=== PATIENT | male | born 1960 | race Caucasian/White ===

== ENCOUNTER 2017-03-29 16:54 | Emergency (ER) | payer BC ==
[2017-03-29 17:18] VITALS: BP 137/90
--- NOTE | 2017-03-29 19:16 | US ---
Right lower extremity deep venous ultrasound: Duplex and color flow imaging was obtained of the right common femoral, superficial femoral, popliteal, posterior tibial and peroneal veins. Left common femoral vein was also evaluated. Findings: Extensive right lower extremity deep venous thrombosis is identified from the proximal superficial femoral vein inferiorly to involve the posterior tibial and peroneal veins. Left common femoral vein is patent. Impression: 1. Extensive right lower extremity deep venous thrombosis. I am given a note that a preliminary report was given to the referring physician after the exam's completion Diagnostic code #5
[2017-03-29] MEDS ORDERED: Enoxaparin 100 MG/1 ML Syringe SUBCUT ONE (19:22)
--- NOTE | 2017-03-29 19:50 | EDM.PDOC ---
ED HPI GENERAL MEDICAL PROBLEM - General Chief Complaint: Lower Extremity Injury/Pain Stated Complaint: R ANKLE/CALF SWELLING POST TKR Time Seen by Provider: 03/29/17 17:16 Source of Information: Reports: Patient, RN notes reviewed - History of Present Illness INITIAL COMMENTS - FREE TEXT/NARRATIVE: 56-year-old male comes in with swelling of his right lower leg. He states this started with some very mild swelling about 5-7 days ago and then has worsened over the past 2-3 days. He has not been having pain. He had a right total knee replacement about 6 months ago. He was on anticoagulants for about 3 months or so, now having been off of anticoagulants for quite a longtime. No recent injury. No history of prior blood clots. No chest pain shortness of breath or other unusual symptomatology - Related Data Allergies Allergy/AdvReac Type Severity Reaction Status Date / Time Penicillins Allergy Fever Verified 03/29/17 17:17 Home Meds: Home Meds atorvaSTATin Calcium [Atorvastatin Calcium] 20 mg PO DAILY 09/02/16 [History] Rivaroxaban [Xarelto] 15 mg PO BID #40 tablet 03/29/17 [Rx] Past Medical History Cardiovascular History: Reports: High cholesterol - Infectious Disease History Infectious Disease History: Reports: Chicken pox, Measles - Past Surgical History HEENT Surgical History: Reports: Laser surgery, LASIK GI Surgical History: Reports: Colonoscopy Musculoskeletal Surgical History: Reports: Knee replacement, Other (see below) Other Musculoskeletal Surgeries/Procedures:: left achilles tendon repair, RTKR August 2016 Social & Family History - Family History HEENT: Reports: Cataract Cardiac: Reports: [place], [place], Stent Respiratory: Reports: Asthma OBGYN: Reports: Musculoskeletal: Reports: Arthritis Neurological: Reports: Alzheimers disease Endocrine/Metabolic: Reports: Diabetes, type II Oncologic: Reports: Prostate - Tobacco Use Smoking Status *Q: Never Smoker Second Hand Smoke Exposure: No - Caffeine Use Caffeine Use: Reports: Coffee - Alcohol Use Days Per Week of Alcohol Use: 1 Number of Drinks Per Day: 0 Total Drinks Per Week: 0 - Recreational Drug Use Recreational Drug Use: No Drug Use in Last 12 Months: No Review of Systems - Review of Systems Review Of Systems: See Below Constitutional: Denies: chills, fever Eyes: Reports: no symptoms Mouth/Throat: Reports: no symptoms Respiratory: Denies: Shortness of Breath, Wheezing, Pleuritic Chest Pain, Cough Cardiovascular: Denies: chest pain GI/Abdominal: Denies: Abdominal pain, Nausea, Vomiting Musculoskeletal: Reports: leg pain (No pain, some mild discomfort just due to the generalized swelling), other (Has had worsening generalized swelling of the right lower extremity from the knee down to the ankle). Denies: joint pain, joint swelling Skin: Reports: erythema (Mild right lower leg) Neurological: Denies: Numbness, Tingling, Difficulty Walking, Weakness Trauma Exam - Physical Exam Exam: See Below General Appearance: Reports: alert Head: Reports: atraumatic Eyes: bilateral eye: PERRL Throat/Mouth: Reports: Normal inspection Neck: Reports: full range of motion, other Respiratory Exam: Reports: no respiratory distress (No JVD), lungs clear, normal breath sounds Cardiovascular: Reports: regular rate, rhythm Extremities: Pedal Edema (Mild to moderate right lower extremity, diffuse swelling from the knee to the ankle), Other (There is no bony tenderness of the knee, no knee swelling warmth erythema or effusion, or is mild erythema of the right lower leg, calf is nontender) Neurologic: Reports: no motor/sensory deficits Skin: Reports: Warm/dry Course - Vital Signs Last Recorded V/S: Last Vital Signs Temp 97.3 F 03/29/17 17:16 Pulse 84 03/29/17 17:16 Resp 17 03/29/17 17:16 BP 137/90 03/29/17 17:16 Pulse Ox 100 03/29/17 17:16 - Orders/Labs/Meds Orders: Active Orders 24 hr Category Date Time Status CBC W/O DIFF,HEMOGRAM [HEME] MOTH@0700 Lab 03/30/17 07:00 Ordered CBC W/O DIFF,HEMOGRAM [HEME] MOTH@0700 Lab 04/03/17 07:00 Ordered CBC W/O DIFF,HEMOGRAM [HEME] MOTH@0700 Lab 04/06/17 07:00 Ordered CBC W/O DIFF,HEMOGRAM [HEME] MOTH@0700 Lab 04/10/17 07:00 Ordered CBC W/O DIFF,HEMOGRAM [HEME] MOTH@0700 Lab 04/13/17 07:00 Ordered CBC W/O DIFF,HEMOGRAM [HEME] MOTH@0700 Lab 04/17/17 07:00 Ordered Labs: Laboratory Tests 03/29/17 03/29/17 Range/Units 17:51 17:51 WBC 7.00 (4.23-9.07) K/mm3 RBC 4.43 L (4.63-6.08) M/mm3 Hgb 13.9 (13.7-17.5) gm/L Hct 41.9 (40.1-51.0) % MCV 94.6 H (79.0-92.2) fl MCH 31.4 (25.7-32.2) pg MCHC 33.2 (32.2-35.5) g/dl RDW Std Deviation 44.6 H (35.1-43.9) fL Plt Count 269 (163-337) K/mm3 MPV 8.9 L (9.4-12.3) fl Neut % (Auto) 55.3 (34.0-67.9) % Lymph % (Auto) 29.7 (21.8-53.1) % [place] % (Auto) 9.7 (5.3-12.2) % Eos % (Auto) 4.3 (0.8-7.0) Baso % (Auto) 0.7 (0.1-1.2) % Neut # (Auto) 3.87 (1.78-5.38) K/mm3 Lymph # (Auto) 2.08 (1.32-3.57) K/mm3 [place] # (Auto) 0.68 (0.30-0.82) K/mm3 Eos # (Auto) 0.30 (0.04-0.54) K/mm3 Baso # (Auto) 0.05 (0.01-0.08) K/mm3 Sodium 139 (136-145) mEq/L Potassium 3.8 (3.5-5.1) mEq/L Chloride 105 (98-107) mEq/L Carbon Dioxide 25 (21-32) mEq/L Anion Gap 12.8 (5-15) BUN 16 (7-18) mg/dL Creatinine 1.2 (0.7-1.3) mg/dL Est Cr Clr Drug Dosing 78.97 mL/min Estimated GFR (MDRD) > 60 (>60) mL/min BUN/Creatinine Ratio 13.3 L (14-18) Glucose 97 (74-106) mg/dL Calcium 8.9 (8.5-10.1) mg/dL Total Bilirubin 0.4 (0.2-1.0) mg/dL AST 19 (15-37) U/L ALT 40 (16-63) U/L Alkaline Phosphatase 133 H (46-116) U/L Total Protein 7.5 (6.4-8.2) g/dl Albumin 3.8 (3.4-5.0) g/dl Globulin 3.7 gm/dL Albumin/Globulin Ratio 1.0 (1-2) Meds: Medications Discontinued Medications Generic Name Dose Route Start Last Admin Trade Name Ginoq PRN Reason Stop Dose Admin Enoxaparin Sodium 100 mg 03/29/17 19:22 03/29/17 19:35 Lovenox SUBCUT 03/29/17 19:23 100 mg ONETIME ONE Administration - Re-Assessments/Exams Free Text/Narrative Re-Assessment/Exam: 03/29/17 18;00. Ultrasound of right lower extremity does show extensive right lower extremity deep venous thrombosis from the proximal superficial femoral vein inferiorly to involve the posterior tibial and peroneal veins. Left common femoral vein is patent, see Radiology report for details. Labs were normal. He continues to have no chest pain shortness of breath or any symptoms suggestive for PE. Have given Lovenox 100 mg subcutaneous. He would prefer to be on xarelto going forward. Therefore prescription for xarelto has been provided to start 15 mg twice daily in the morning. Discharge instructions as documented. Departure - Departure Time of Disposition: 19:46 Disposition: Home, Self-Care 01 Condition: fair Clinical Impression: DVT (deep venous thrombosis) Qualifiers: DVT location: lower extremity Affected thrombotic vein of extremity: other lower extremity vein Laterality: right Chronicity: acute Qualified Code(s): I82.491 - Acute embolism and thrombosis of other specified deep vein of right lower extremity - Discharge Information Prescriptions: Rivaroxaban [Xarelto] 15 mg PO BID #40 tablet Instructions: Deep Vein Thrombosis Referrals: Bc Bahena MD [Primary Care Provider] - Forms: ED Department Discharge Additional Instructions: You have been Given given a Lovenox injection this evening while here in the ED. Began xarelto tomorrow morning and take 15 mg twice daily for the next 3 weeks, than 20 mg daily. Keep leg elevated as much as possible. See Dr. Ortega next Monday or Monday at the clinic in followup. Call tomorrow morning for appointment. Return to ED immediately if you do experience any chest pain, difficulty breathing, unexplained weakness dizziness or other unexpected symptoms. - My Orders Last 24 Hours: My Active Orders 03/30/17 07:00 CBC W/O DIFF,HEMOGRAM [HEME] MOTH@0700 04/03/17 07:00 CBC W/O DIFF,HEMOGRAM [HEME] MOTH@0704/06/17 07:00 CBC W/O DIFF,HEMOGRAM [HEME] MOTH@69904/10/17 07:00 CBC W/O DIFF,HEMOGRAM [HEME] MOTH@69904/13/17 07:00 CBC W/O DIFF,HEMOGRAM [HEME] MOTH@0704/17/17 07:00 CBC W/O DIFF,HEMOGRAM [HEME] MOTH@0700 - Assessment/Plan Last 24 Hours: My Active Orders 03/30/17 07:00 CBC W/O DIFF,HEMOGRAM [HEME] MOTH@0704/03/17 07:00 CBC W/O DIFF,HEMOGRAM [HEME] MOTH@69904/06/17 07:00 CBC W/O DIFF,HEMOGRAM [HEME] MOTH@0704/10/17 07:00 CBC W/O DIFF,HEMOGRAM [HEME] MOTH@69904/13/17 07:00 CBC W/O DIFF,HEMOGRAM [HEME] MOTH@0700 04/17/17 07:00 CBC W/O DIFF,HEMOGRAM [HEME] MOTH@0700
== END 2017-03-29 20:05 | disposition home or self-care (01) ==
LOC: JD.ED 16:54
DX: I82.491 Acute embolism and thrombosis of other specified deep vein of right lower extremity (principal); E86.0 Dehydration; Z79.899 Other long term (current) drug therapy; Z88.0 Allergy status to penicillin; Z98.890 Other specified postprocedural states; Z96.651 Presence of right artificial knee joint
CPT/HCPCS: 36415; 80053; 85025; 93971; 96372; 99284; J1650

== ENCOUNTER 2017-09-25 08:20 | Emergency (ER) | payer BC ==
[2017-09-25 08:38] VITALS: BP 179/99
--- NOTE | 2017-09-25 09:51 | EDM.PDOC ---
ED HPI GENERAL MEDICAL PROBLEM - General Chief Complaint: Upper Extremity Injury/Pain Stated Complaint: LT SHOULDER PAIN Time Seen by Provider: 09/25/17 08:39 Source of Information: Reports: Patient, RN Notes Reviewed - History of Present Illness INITIAL COMMENTS - FREE TEXT/NARRATIVE: 57-year-old male has had some pain left anterior shoulder that started yesterday. He had done some shoveling the 2 days prior but not aware of any other particular injury. There's been no fall. He went to the walk-in clinic and they referred him here with cardiac concerns. The pain does not travel across his chest. The pain is worse with certain types of twisting of the upper body and also certain types of motion of the left arm. Left Shoulder Pain Score (Numeric/FACES): 1 - Related Data Allergies Allergy/AdvReac Type Severity Reaction Status Date / Time Penicillins Allergy Fever Verified 09/25/17 08:34 Home Meds: Home Meds atorvaSTATin Calcium [Atorvastatin Calcium] 20 mg PO DAILY 09/02/16 [History] Past Medical History Cardiovascular History: Reports: High Cholesterol - Infectious Disease History Infectious Disease History: Reports: Chicken Pox, Measles - Past Surgical History HEENT Surgical History: Reports: Laser Surgery, LASIK GI Surgical History: Reports: Colonoscopy Musculoskeletal Surgical History: Reports: Knee Replacement, Other (See Below) Dermatological Surgical History: Reports: None Social & Family History - Family History HEENT: Reports: Cataract Cardiac: Reports: [place], [place], Stent Respiratory: Reports: Asthma OBGYN: Reports: Musculoskeletal: Reports: Arthritis Neurological: Reports: Alzheimers Disease Endocrine/Metabolic: Reports: Diabetes, type II Oncologic: Reports: Prostate - Tobacco Use Smoking Status *Q: Unknown Ever Smoked Second Hand Smoke Exposure: No - Caffeine Use Caffeine Use: Reports: Coffee - Alcohol Use Days Per Week of Alcohol Use: 1 Number of Drinks Per Day: 0 Total Drinks Per Week: 0 - Recreational Drug Use Recreational Drug Use: No Drug Use in Last 12 Months: No Review of Systems - Review of Systems Review Of Systems: See Below Constitutional: Reports: No Symptoms Mouth/Throat: Reports: No Symptoms Respiratory: Denies: Shortness of Breath, Pleuritic Chest Pain, Cough Cardiovascular: Reports: Chest Pain GI/Abdominal: Denies: Abdominal Pain (Left anterior shoulder), Nausea, Vomiting Musculoskeletal: Reports: Shoulder Pain (Left anterior shoulder). Denies: Arm Pain, Leg Pain Skin: Reports: No Symptoms Neurological: Reports: No Symptoms ED EXAM, GENERAL - Physical Exam Exam: See Below General Appearance: Alert, No Apparent Distress Eye Exam: Bilateral Eye: PERRL Throat/Mouth: Normal Inspection, Normal Oropharynx Head: Atraumatic Neck: Supple, Full Range of Motion Respiratory/Chest: No Respiratory Distress, Lungs Clear, Other (There is tenderness of the left anterior chest wall anterior and just below the left shoulder). No: Rhonchi (, chest otherwise nontender) Cardiovascular: Regular Rate, Rhythm GI/Abdominal: Soft, Non-Tender. No: Guarding Back Exam: No: CVA Tenderness (L), CVA Tenderness (R) Extremities: No: Pedal Edema, Leg Pain Neurological: Alert, Oriented, No Motor/Sensory Deficits Skin Exam: Warm, Dry, Normal Color EKG INTERPRETATION EKG Date: 09/25/17 Rhythm: NSR Snyder: Normal P-Wave: Present QRS: Normal ST-T: Other (T-wave inversion in lead 3) QT: Normal Course - Vital Signs Last Recorded V/S: Last Vital Signs Temp 97.7 F 09/25/17 08:35 Pulse 95 09/25/17 08:35 Resp 16 09/25/17 08:35 BP 179/99 H 09/25/17 08:35 Pulse Ox 99 09/25/17 08:35 - Orders/Labs/Meds Orders: Active Orders 24 hr Category Date Time Status EKG Documentation Completion [RC] ASDIRECTED Care 09/25/17 08:38 Active EKG 12 Lead [EK] Stat Ther 09/25/17 08:38 Ordered Labs: Laboratory Tests 09/25/17 Range/Units 08:54 Troponin I < 0.017 (0.00-0.056) ng/mL - Re-Assessments/Exams Free Text/Narrative Re-Assessment/Exam: 09/25/17 17:32. EKG did not show acute changes, troponins did come back normal. He does have chest wall and left lower anterior shoulder tenderness exacerbated by certain types of motion. Discharge instructions as documented Departure - Departure Time of Disposition: 09:57 Disposition: Home, Self-Care 01 Clinical Impression: Acute chest wall pain - Discharge Information Instructions: Chest Wall Pain Referrals: Bc Bahena MD [Primary Care Provider] - Forms: ED Department Discharge Additional Instructions: Aleve 2 tablets twice daily, you may take Tylenol 2-3 times daily for additional pain relief as needed, alternate ice and heat, avoid heavy lifting, The pain should gradually get better over the next 2-4 days, follow-up clinic if not much better by later this week, return to ED if symptoms worsening in any way - My Orders Last 24 Hours: My Active Orders 09/25/17 08:38 EKG Documentation Completion [RC] ASDIRECTED EKG 12 Lead [EK] Stat - Assessment/Plan Last 24 Hours: My Active Orders 09/25/17 08:38 EKG Documentation Completion [RC] ASDIRECTED EKG 12 Lead [EK] Stat
== END 2017-09-25 10:08 | disposition home or self-care (01) ==
LOC: JD.ED 08:20
DX: R07.89 Other chest pain (principal); E78.00 Pure hypercholesterolemia, unspecified; Z88.0 Allergy status to penicillin
CPT/HCPCS: 36415; 84484; 93005; 93010; 99284; 99284-25

== ENCOUNTER 2019-09-21 04:55 | Emergency (ER) | payer BC ==
--- NOTE | 2019-09-21 05:41 | EDM.PDOC ---
ED HPI GENERAL MEDICAL PROBLEM - General Chief Complaint: Lower Extremity Injury/Pain Stated Complaint: RIGHT LEG SWOLLEN/PAINFUL Time Seen by Provider: 09/21/19 05:30 Source of Information: Reports: Patient History Limitations: Reports: No Limitations - History of Present Illness INITIAL COMMENTS - FREE TEXT/NARRATIVE: 59-year-old male presents to the ED with painful swollen right lower extremity. Patient states she's been in [place] most of the week. He flew down to [place] was fairly active not sitting around a good deal did some traveling by vehicle. He flew home yesterday. Patient in his right lower extremity becoming somewhat painful over the last couple of days. He woke this morning however the leg was much more painful when he got up to use the bathroom. He turned on the lights he appreciated the right medial aspect of his lower extremity was also reddened and more tender than one would expect. He has had previous DVT in the right lower extremity in March 2017. 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 He was on blood thinners for 3 months after this. He has no pleuritic chest pain. His O2 sats are 94%. He presents therefore to rule out DVT. Onset: Gradual Onset Date: 09/19/19 Duration: Day(s):, Getting Worse Location: Reports: Lower Extremity, Right (Started to appreciate some discomfort in his right lower extremity below the knee mid calf 2 days ago. It has become more swollen and painful over the last 12-24 hours. When he woke this morning the right side of his medial leg is reddened and pain with walking. ) Quality: Reports: Ache, Throbbing, Other (Slight erythema medial aspect of right lower extremity.) Severity: Moderate Improves with: Reports: None Worsens with: Reports: Movement Context: Reports: Other (Recent travel history biplane and car.). Denies: Activity (Walking makes it worse. Touching it hurts as well.), Exercise, Lifting , Sick Contact, Trauma Associated Symptoms: Reports: No Other Symptoms. Denies: Diaphoresis, Fever/ Chills, Headaches, Loss of Appetite, Malaise, Rash, Seizure, Shortness of Breath , Syncope, Weakness Treatments PULP PRESS TENDER: Reports: Other (see below) (None.) Right Lower Leg Pain Score (Numeric/FACES): 1 - Related Data Allergies Allergy/AdvReac Type Severity Reaction Status Date / Time Penicillins Allergy Fever Verified 09/21/19 05:02 Home Meds: Home Meds atorvaSTATin Calcium [Atorvastatin Calcium] 20 mg PO DAILY 09/02/16 [History] Rivaroxaban [Xarelto] 15 mg PO BID #42 tablet 09/21/19 [Rx] Rivaroxaban [Xarelto] 20 mg PO DAILY #30 tablet 09/21/19 [Rx] Past Medical History Cardiovascular History: Reports: Blood Clots/VTE/DVT, High Cholesterol, Hypertension Hematologic History: Reports: Other (See Below) ( Previous DVT right lower extremity March 2017) - Infectious Disease History Infectious Disease History: Reports: Chicken Pox, Measles - Past Surgical History HEENT Surgical History: Reports: Laser Surgery, LASIK GI Surgical History: Reports: Colonoscopy Musculoskeletal Surgical History: Reports: Knee Replacement Dermatological Surgical History: Reports: None Social & Family History - Family History HEENT: Reports: Cataract Cardiac: Reports: [place], [place], Stent Respiratory: Reports: Asthma OBGYN: Reports: Musculoskeletal: Reports: Arthritis Neurological: Reports: Alzheimers Disease Endocrine/Metabolic: Reports: Diabetes, type II Oncologic: Reports: Prostate - Tobacco Use Smoking Status *Q: Never Smoker - Caffeine Use Caffeine Use: Reports: Coffee - Recreational Drug Use Recreational Drug Use: No - Living Situation & Occupation Living situation: Reports: Occupation: Employed Review of Systems - Review of Systems Review Of Systems: See Below Constitutional: Reports: No Symptoms Eyes: Reports: No Symptoms Ears: Reports: No Symptoms Nose: Reports: No Symptoms, Previous Injury Mouth/Throat: Reports: No Symptoms Respiratory: Reports: Cough, Other (Mild cough.). Denies: Shortness of Breath, Wheezing, Pleuritic Chest Pain, Sputum Cardiovascular: Reports: No Symptoms GI/Abdominal: Reports: No Symptoms Genitourinary: Reports: No Symptoms Musculoskeletal: Reports: Leg Pain Skin: Reports: Erythema (Development of mild erythema and tender to touch along the medial aspect of his right lower extremity over the last 20 hours.) Neurological: Reports: No Symptoms Psychiatric: Reports: No Symptoms ED EXAM, GENERAL - Physical Exam Exam: See Below Exam Limited By: No Limitations General Appearance: Alert, WD/WN, Anxious, Mild Distress, Other (Temperatures 36.3. Pulse is 92 and sinus respiratory disease 18 sats 94% on room air BP 160/ 96.) Eye Exam: Bilateral Eye: Normal Inspection, PERRL Throat/Mouth: Normal Inspection, Normal Lips, Normal Oropharynx Neck: Normal Inspection, Supple, Non-Tender, Full Range of Motion. No: Lymphadenopathy (L) Respiratory/Chest: No Respiratory Distress, Lungs Clear, Normal Breath Sounds, No Accessory Muscle Use Cardiovascular: Normal Peripheral Pulses, Regular Rate, Rhythm, No Edema, No Gallop, No Murmur, No Rub Peripheral Pulses: 2+: Posterior Tibial (L), Posterior Tibial (R), Dorsalis Pedis (L), Dorsalis Pedis (R) GI/Abdominal: Normal Bowel Sounds, Soft, Non-Tender, No Organomegaly, No Mass, Pelvis Stable Extremities: Other (On examination there is no doubt that the right lower extremity is larger than the left lower extremity. There is erythema from medial malleolus to the knee medially of the right leg. The calf musculature is more taut on the right side. Pulses are equal on both sides. No significant swelling in the popliteal fossa on either side. Concerns are certainly noted for possible DVT reoccurrence on the right side.) Neurological: Alert, Oriented, CN II-XII Intact, Normal Cognition Psychiatric: Normal Affect, Normal Mood Skin Exam: Warm, Dry, Intact, Normal Color, No Rash Course - Vital Signs Last Recorded V/S: Last Vital Signs Temp 36.3 C 09/21/19 05:03 Pulse 92 09/21/19 05:03 Resp 18 09/21/19 05:03 BP 160/96 H 09/21/19 05:03 Pulse Ox 94 L 09/21/19 05:03 - Orders/Labs/Meds Orders: Active Orders 24 hr Category Date Time Status VL Duplex Lwr Ext Veins Ltd Rt [US] Stat Exams 09/21/19 05:39 Ordered ANTICARDIOLIPIN AB, IGG/M, QN [REF] Stat Lab 09/21/19 07:18 Ordered ANTITHROMBIN ACTIVITY [REF] Stat Lab 09/21/19 07:17 Ordered FACTOR V LEIDEN MUTATION [REF] Stat Lab 09/21/19 07:16 Ordered PROTEIN C-FUNCTIONAL [REF] Stat Lab 09/21/19 07:17 Ordered PROTEIN S-FUNCTIONAL [REF] Stat Lab 09/21/19 07:17 Ordered Labs: Laboratory Tests 09/21/19 09/21/19 09/21/19 Range/Units 06:11 06:11 06:11 WBC 6.18 (4.23-9.07) K/mm3 RBC 4.76 (4.63-6.08) M/mm3 Hgb 15.0 (13.7-17.5) gm/dl Hct 44.9 (40.1-51.0) % MCV 94.3 H (79.0-92.2) fl MCH 31.5 (25.7-32.2) pg MCHC 33.4 (32.2-35.5) g/dl RDW Std Deviation 44.8 H (35.1-43.9) fL Plt Count 248 (163-337) K/mm3 MPV 9.0 L (9.4-12.3) fl Neut % (Auto) 51.6 (34.0-67.9) % Lymph % (Auto) 29.4 (21.8-53.1) % [place] % (Auto) 11.7 (5.3-12.2) % Eos % (Auto) 6.3 (0.8-7.0) Baso % (Auto) 0.8 (0.1-1.2) % Neut # (Auto) 3.19 (1.78-5.38) K/mm3 Lymph # (Auto) 1.82 (1.32-3.57) K/mm3 [place] # (Auto) 0.72 (0.30-0.82) K/mm3 Eos # (Auto) 0.39 (0.04-0.54) K/mm3 Baso # (Auto) 0.05 (0.01-0.08) K/mm3 PT 10.5 (9.7-12.0) SECONDS INR 0.96 APTT 25 (22-31) SECONDS D-Dimer, Quantitative 1.43 H (0.19-0.50) mg/L Sodium 139 (136-145) mEq/L Potassium 4.1 (3.5-5.1) mEq/L Chloride 105 (98-107) mEq/L Carbon Dioxide 25 (21-32) mEq/L Anion Gap 13.1 (5-15) BUN 16 (7-18) mg/dL Creatinine 1.2 (0.7-1.3) mg/dL Est Cr Clr Drug Dosing 76.11 mL/min Estimated GFR (MDRD) > 60 (>60) mL/min BUN/Creatinine Ratio 13.3 L (14-18) Glucose 117 H (74-106) mg/dL Calcium 9.1 (8.5-10.1) mg/dL Total Bilirubin 0.7 (0.2-1.0) mg/dL AST 21 (15-37) U/L ALT 53 (16-63) U/L Alkaline Phosphatase 97 (46-116) U/L Total Protein 7.2 (6.4-8.2) g/dl Albumin 3.6 (3.4-5.0) g/dl Globulin 3.6 gm/dL Albumin/Globulin Ratio 1.0 (1-2) - Radiology Interpretation Free Text/Narrative:: 59-year-old male presents to the ED for evaluation of painful swollen right lower extremity. He's had a previous DVT in the right lower extremity for no apparent reason in March 2017. He had a total knee replacement in August 2016. He has recently traveled to [place] by airplane and was traveling by car somewhat. He appreciated some tenderness in his right lower extremity feeling that he may have tweaked his calf muscle by awkward movements about a week ago. Is 48 hours she is felt that the right lower extremity has become more swollen and definitely more painful over the last 12 hours medial aspect of the calf. Up to void this morning he was difficult and painful to walk in the medial calf particularly. Also appreciated that it was more erythematous than it was when he went to bed. O2 sats are 94% on room air but he denies any real significant shortness of breath. He has a mild nonproductive cough no pleuritic chest pain. Examination is worrisome for a recurrent DVT in his right lower extremity. Tissue is swollen and more taut than on the left side. Plan ultrasound of the right lower extremity to be done and labs to be drawn to include a d-dimer. - Re-Assessments/Exams Free Text/Narrative Re-Assessment/Exam: 09/21/19 06:37 Labs reveal a normal white count at 6.18. The auto differential shows 51.6% neutrophils. Hemoglobin is 15.0 with hematocrit of 44.9. MCV slightly elevated 94.3. Platelet count 248,000 09/21/19 06:51 Coags reveal a PT of 10.5 and an INR of 0.96. PTT is 25 d-dimer is elevated at 1.43. Sodium 139 with a potassium of 4.1. Chloride 105 with a bicarbonate of 25. Anion gap is 13.1. BUN is 16 with a creatinine of 1.2. GFR remains greater than 60. Glucose is 117 with a calcium of 9.1. Liver function is normal. Total protein 7.2 with albumin fraction of 3.6. 09/21/19 07:00 care will be assumed by Dr. Johnson as it is change of shift. Currently the Doppler ultrasound has not yet completed. Clinically the patient has a DVT and was on Eliquis for prior DVT in 2017. 09/21/19 07:19 geotechnical engineering technician indicates that the patient doesn't fact have a DVT in the distal popliteal vein behind the knee and a complete occlusion of superficial vein anterior right leg and early clot formation at the bifurcation of the anterior and posterior tibial veins. Therefore I have ordered factor V Leiden factor function, protein S, protein C, anticardiolipin antibodies, and antithrombin III function. 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 This would suggest that he is a candidate for staying on long-term medication to prevent clotting. Patient will be started on Xarelto 15 mg twice a day for the next 3 weeks then 20 mg once daily. He will have to follow-up with his primary care physician in about a week 's time for the results of today's tests. Departure - Departure Time of Disposition: 07:22 Disposition: Home, Self-Care 01 Condition: Fair Clinical Impression: Deep vein thrombosis Qualifiers: DVT location: lower extremity Affected thrombotic vein of extremity: other lower extremity vein Chronicity: acute Laterality: right Qualified Code(s): I82.491 - Acute embolism and thrombosis of other specified deep vein of right lower extremity - Discharge Information *PRESCRIPTION DRUG MONITORING PROGRAM REVIEWED*: Not Applicable *COPY OF PRESCRIPTION DRUG MONITORING REPORT IN PATIENT [place]: Not Applicable Prescriptions: Rivaroxaban [Xarelto] 15 mg PO BID #42 tablet Rivaroxaban [Xarelto] 20 mg PO DAILY #30 tablet Referrals: Bc Bahena MD [Primary Care Provider] - Forms: ED Department Discharge Additional Instructions: Evaluation the emergency room this morning in regards to increased pain and swelling of the right lower extremity over the last couple of days. Strip previous DVT right lower extremity for no good reason in March 2017. Examination reveals redness along the medial aspect of your right lower extremity with some localized tenderness suggest to suggest superficial phlebitis. Increased tautness within the musculature of the right lower extremity to be highly suspicious for a blood clot. Management of d-dimer which is a nonspecific test for increased clotting did come back elevated at 1.46 with normal being less than 0.59. Doppler ultrasound confirms clinical suspicion of a blood clot in the lower popliteal vein behind your knee and it extends to the bifurcation of the anterior and posterior tibial veins in your calf. Ultrasound also suggested that the superficial vein on the surface of the medial knee is completely clotted off as well. Unclear if this is new or old but is the cause of the current pain and erythema or redness of the right leg. Treatment is to be off her leg is much as possible for the next 3 days until the education becomes fully effectual in reducing potential clot formation. Heat packs to the right lower extremity for one half hour out of every 4 hours will relieve pain and inflammation. May take Tylenol 650 mg every 6 hours if needed for pain relief but cannot take Motrin or Aleve with Xarelto. Will need to be on medication Xarelto 15 mg twice daily for 3 weeks with the first tablet being provided in the ED this morning. After this she will take a 20 mg tablet once daily. I've asked the lab to do further testing on your blood to see if there is a genetic predisposition for you to develop spontaneous blood clots in your lower extremities. If there is an abnormality then it would mean staying on Xarelto long-term to prevent further clot formation and in particularly pulmonary embolism. Suggest follow-up with your personal care physician in one week's time and these results should become available as they are reference tests no referred to a reference lab. Will be sent out on Monday and I would not expect the results back until the following Monday. - My Orders Last 24 Hours: My Active Orders 09/21/19 05:39 VL Duplex Lwr Ext Veins Ltd Rt [US] Stat 09/21/19 07:16 FACTOR V LEIDEN MUTATION [REF] Stat 09/21/19 07:17 ANTITHROMBIN ACTIVITY [REF] Stat PROTEIN C-FUNCTIONAL [REF] Stat PROTEIN S-FUNCTIONAL [REF] Stat 09/21/19 07:18 ANTICARDIOLIPIN AB, IGG/M, QN [REF] Stat - Assessment/Plan Last 24 Hours: My Active Orders 09/21/19 05:39 VL Duplex Lwr Ext Veins Ltd Rt [US] Stat 09/21/19 07:16 FACTOR V LEIDEN MUTATION [REF] Stat 09/21/19 07:17 ANTITHROMBIN ACTIVITY [REF] Stat PROTEIN C-FUNCTIONAL [REF] Stat PROTEIN S-FUNCTIONAL [REF] Stat 09/21/19 07:18 ANTICARDIOLIPIN AB, IGG/M, QN [REF] Stat
[2019-09-21] MEDS ORDERED: Rivaroxaban 15 MG Tab PO ONE (07:27)
--- NOTE | 2019-09-21 07:40 | US ---
Right lower extremity deep venous ultrasound: Duplex and color flow imaging was obtained of the right common femoral, proximal greater saphenous, superficial femoral, popliteal, posterior tibial and peroneal vein. Left common femoral vein was also evaluated. Comparison: Previous right lower extremity deep venous ultrasound of 03/29/17. Findings: There is partially occluding clot within the right popliteal and proximal peroneal vein. There is superficial thrombus being seen within the right anterior calf which is hypoechoic and echogenic likely representing combination of chronic and acute thrombophlebitis. Other vein show normal phasic flow, augmentation and compression. Impression: 1. Partially occluding clot within the right popliteal and proximal right peroneal vein. 2. Findings felt compatible with acute and chronic thrombophlebitis within a superficial vein within the anterior right calf. Diagnostic code #5
[2019-09-21 07:54] VITALS: BP 143/94; PULSE 91
== END 2019-09-21 07:50 | disposition home or self-care (01) ==
LOC: JD.ED 04:55
DX: I82.491 Acute embolism and thrombosis of other specified deep vein of right lower extremity (principal); E78.00 Pure hypercholesterolemia, unspecified; I10 Essential (primary) hypertension; Z88.0 Allergy status to penicillin; Z79.01 Long term (current) use of anticoagulants; Z79.899 Other long term (current) drug therapy
CPT/HCPCS: 36415; 80053; 81241; 85025; 85300; 85303; 85306; 85379; 85610; 85730; 86147; 93971; 99284; A9270